=== PATIENT | female | born 1995 | race African-American/Black ===

== ENCOUNTER 2019-06-13 11:15 | Emergency (ER) | payer OTHER ==
[~2019-06-13] VITALS: Ht 177.8 cm; Wt 113.4 kg
--- NOTE | 2019-06-13 11:40 | NUR ---
R SIDED BODY RASH, ITCHING SINCE YESTERDAY. PATIENT A/OX4, BREATHING EVEN AND UNLABORED, NO SOB NOTED.
[2019-06-13] MEDS ORDERED: predniSONE 20 MG TABLET ONE (11:57)
[2019-06-13] MEDS ORDERED: FAMOTIDINE (20 MG) 20 MG TABLET ONE (11:57)
[2019-06-13] MEDS: predniSONE 10 MG TABLET PO ONE (12:01)
[2019-06-13] MEDS: FAMOTIDINE (20 MG) 20 MG TABLET PO ONE (12:01)
--- NOTE | 2019-06-13 12:58 | NUR ---
Patient discharged to home in stable condition. Written and verbal after care instructions given. Patient verbalizes understanding of instruction.
[2019-06-13 13:02] VITALS: BP 127/78
== END 2019-06-13 13:03 | disposition home or self-care (01) ==
LOC: ER 11:17
DX: L23.9 Allergic contact dermatitis, unspecified cause (principal)
CPT/HCPCS: 99283; J7512